=== PATIENT | female | born 1950 | race Two or more races ===

== ENCOUNTER 2023-07-04 13:31 | Inpatient (IN) | payer MEDICARE, MEDICAID ==
[~2023-07-04] VITALS: Ht 170.2 cm; Wt 85.4 kg
[2023-07-04 15:49] LABS: Basophils # (auto) 0 10 ^3/uL (0-0.2); Basophils % (auto) 0.4 % (0.0-2.0); Eosinophils # (auto) 0.1 10 ^3/uL (0-0.8); Eosinophils % (auto) 1.4 % (0.0-7.0); Hematocrit 38.9 % (36.0-46.0); Hemoglobin 12.9 g/dL (12.2-16.2); Lymphocytes # (auto) 1.3 10 ^3/uL (0.4-5.4); Lymphocytes % (auto) 20.1 % (10.0-50.0); Mean Corpuscular Hemoglobin 30.3 pg (28.0-32.0); Mean Corpuscular Hgb Conc. 33.2 g/dL (32.0-36.0); Mean Corpuscular Volume 91.5 fL (80.0-100.0); Monocytes # (auto) 0.3 10 ^3/uL (0-1.3); Monocytes % (auto) 5.1 % (0.0-12.0); Neutrophils # (auto) 4.8 10 ^3/uL (1.6-8.6); Nucleated Red Blood Cells % 0.1 %; Red Blood Cells 4.26 10^6/uL (4.0-5.20); Red Cell Distribution Width 12.8 % (11.8-14.3); White Blood Cell 6.6 10^3/uL (4.4-10.8)
[2023-07-04 16:00] LABS: Alanine Aminotransferase 23 U/L (7-40); Albumin 4.1 g/dL (3.2-4.8); Alkaline Phosphatase 63 U/L (46-116); Anion Gap 6 (5-15); Aspartate Aminotransferase 24 U/L (13-40); BUN/Creatinine Ratio 19.4 (10.0-20.0); Blood Urea Nitrogen 12 mg/dL (9-23); Calcium 8.9 mg/dL (8.7-10.4); Carbon Dioxide 28 mmol/L (20-30); Chloride 107 mmol/L (98-107); Glucose 96 mg/dL (74-106); Potassium 3.9 mmol/L (3.5-5.1); Sodium 141 mmol/L (136-145)
[2023-07-04 16:01] LABS: Bilirubin, Total 0.7 mg/dL (0.2-1.0); Total Protein 7.6 g/dL (5.7-8.2)
[2023-07-04 16:21] LABS: INR 1.01 (0.9-1.15); Partial Thromboplastin Time 26.3 SEC (24.5-34.5); Prothrombin Time 10.6 sec (9.3-11.8)
[2023-07-04] MEDS ORDERED: DOCUSATE SOD 100 MG CAP PO PRN (18:15)
[2023-07-04] MEDS ORDERED: MORPHINE SULFATE INJ 2 MG/ml SYRG IV PRN (18:15)
[2023-07-04] MEDS ORDERED: HYDROcodone-ACET 5/325MG TAB PO PRN (18:15)
[2023-07-04] MEDS ORDERED: ONDANSETRON HCL 4 MG/2 ML VIAL IV PRN (18:15)
[2023-07-04] MEDS ORDERED: ACETAMINOPHEN 325 MG TAB PO PRN (18:15)
[2023-07-04] MEDS ORDERED: ATOR40TA52 PO (18:41)
[2023-07-04] MEDS ORDERED: LOSA50TA46 PO (18:41)
[2023-07-04] MEDS ORDERED: hydrALAZINE HCL 20 MG/ML VL IV PRN (18:45)
[2023-07-04 20:15] VITALS: PULSE 65; RESP 14; O2SAT 95
[2023-07-04 23:48] VITALS: BP 148/63; PULSE 60; RESP 18; RESP 20; TEMP 98.3; TEMP 98.6; O2SAT 97
[2023-07-05 04:07] LABS: Urine Epithelial Cast None Seen /hpf (<5)
[2023-07-05 04:17] LABS: Urine Bacteria MANY /hpf (None Seen); Urine Blood Negative /uL (Negative); Urine Clarity HAZY (Clear); Urine Color Yellow (Yellow); Urine Mucus FEW (None Seen); Urine Protein, UAD TRACE (Negative); Urine Specific Gravity 1.023 (1.001-1.035); Urine WBC 116 /hpf (0 - 5)
[2023-07-05 05:00] VITALS: BP 137/46; PULSE 55; RESP 16; TEMP 98.3; O2SAT 94
[2023-07-05 06:28] LABS: Basophils # (auto) 0 10 ^3/uL (0-0.2); Basophils % (auto) 0.5 % (0.0-2.0); Eosinophils # (auto) 0.2 10 ^3/uL (0-0.8); Eosinophils % (auto) 3.5 % (0.0-7.0); Hematocrit 37.3 % (36.0-46.0); Hemoglobin 12.3 g/dL (12.2-16.2); Lymphocytes # (auto) 1.7 10 ^3/uL (0.4-5.4); Lymphocytes % (auto) 26.3 % (10.0-50.0); Mean Corpuscular Hemoglobin 30.3 pg (28.0-32.0); Mean Corpuscular Hgb Conc. 32.9 g/dL (32.0-36.0); Mean Corpuscular Volume 92.1 fL (80.0-100.0); Monocytes # (auto) 0.5 10 ^3/uL (0-1.3); Monocytes % (auto) 8.4 % (0.0-12.0); Neutrophils # (auto) 3.9 10 ^3/uL (1.6-8.6); Neutrophils % (auto) 61.3 % (37.0-80.0); Nucleated Red Blood Cells % 0.1 %; Red Blood Cells 4.05 10^6/uL (4.0-5.20); White Blood Cell 6.3 10^3/uL (4.4-10.8)
[2023-07-05 06:45] LABS: Alanine Aminotransferase 16 U/L (7-40); Alkaline Phosphatase 56 U/L (46-116); Anion Gap 6 (5-15); BUN/Creatinine Ratio 17.2 (10.0-20.0); Blood Urea Nitrogen 11 mg/dL (9-23); Carbon Dioxide 26 mmol/L (20-30); Chloride 109 mmol/L (98-107); Glucose 96 mg/dL (74-106); Potassium 4.1 mmol/L (3.5-5.1); Sodium 141 mmol/L (136-145)
[2023-07-05 06:46] LABS: Albumin 3.8 g/dL (3.2-4.8); Aspartate Aminotransferase 23 U/L (13-40)
[2023-07-05 06:47] LABS: Bilirubin, Total 0.8 mg/dL (0.2-1.0)
[2023-07-05 08:00] VITALS: BP 146/73; PULSE 62; RESP 18; TEMP 98.4; O2SAT 94
[2023-07-05 08:35] VITALS: BP 146/73; PULSE 62; RESP 18; TEMP 98.4; O2SAT 94
[2023-07-05] MEDS: ATORVASTATIN 20 MG TAB PO SCH (09:18)
[2023-07-05] MEDS: LOSARTAN POTASSIUM 50 MG TAB PO SCH (09:18)
[2023-07-05 10:42] LABS: Hepatitis B Surface Antigen Negative (Negative)
[2023-07-05] MEDS ORDERED: cefTRIAXone 1GM/50ML D5W 50 ML IV ONE (11:45)
[2023-07-05 12:12] LABS: Hepatitis C Antibody Negative (Negative)
[2023-07-05 12:32] VITALS: BP 126/60; PULSE 63; RESP 18; TEMP 98.1; O2SAT 93
[2023-07-05 16:17] VITALS: BP 150/61; PULSE 76; RESP 15; TEMP 97.9; O2SAT 93
[2023-07-05 22:00] VITALS: BP 142/69; PULSE 59; RESP 20; TEMP 98.6; O2SAT 92
[2023-07-06 05:00] VITALS: BP 133/67; PULSE 72; RESP 20; TEMP 98.2; O2SAT 96
[2023-07-06 06:46] LABS: Basophils # (auto) 0 10 ^3/uL (0-0.2); Basophils % (auto) 0.6 % (0.0-2.0); Eosinophils # (auto) 0.2 10 ^3/uL (0-0.8); Eosinophils % (auto) 3.5 % (0.0-7.0); Hematocrit 37.1 % (36.0-46.0); Hemoglobin 12.6 g/dL (12.2-16.2); Lymphocytes # (auto) 1.7 10 ^3/uL (0.4-5.4); Lymphocytes % (auto) 26.3 % (10.0-50.0); Mean Corpuscular Hemoglobin 30.9 pg (28.0-32.0); Mean Corpuscular Hgb Conc. 33.9 g/dL (32.0-36.0); Mean Corpuscular Volume 91.2 fL (80.0-100.0); Monocytes # (auto) 0.5 10 ^3/uL (0-1.3); Monocytes % (auto) 8.1 % (0.0-12.0); Neutrophils # (auto) 3.9 10 ^3/uL (1.6-8.6); Neutrophils % (auto) 61.5 % (37.0-80.0); Red Blood Cells 4.07 10^6/uL (4.0-5.20); Red Cell Distribution Width 12.9 % (11.8-14.3); White Blood Cell 6.4 10^3/uL (4.4-10.8)
[2023-07-06 07:06] LABS: Calcium 9.2 mg/dL (8.5-10.1); Chloride 109 mmol/L (98-107); Potassium 3.9 mmol/L (3.5-5.1); Sodium 139 mmol/L (136-145)
[2023-07-06 07:07] LABS: Anion Gap 6 (5-15); Carbon Dioxide 24 mmol/L (20-30)
[2023-07-06 07:12] LABS: BUN/Creatinine Ratio 20.3 (10.0-20.0); Blood Urea Nitrogen 14 mg/dL (9-23); Glucose 97 mg/dL (74-106)
[2023-07-06 08:34] VITALS: BP 145/71; PULSE 77; RESP 18; TEMP 97.5; O2SAT 91
[2023-07-06] MEDS ORDERED: cefTRIAXone 1GM/50ML D5W 50 ML IV SCH (09:00)
[2023-07-06] MEDS: ATORVASTATIN 20 MG TAB PO SCH (09:17)
[2023-07-06] MEDS: LOSARTAN POTASSIUM 50 MG TAB PO SCH (09:17)
[2023-07-06] MEDS ORDERED: NITR-87 PO (10:58)
[2023-07-06] MEDS ORDERED: TRAM50TA2 PO (10:58)
[2023-07-06 11:11] VITALS: BP 145/71; TEMP 36.4
== END 2023-07-06 11:56 | disposition home or self-care (01) | DRG 964 ==
LOC: ER 13:31 → OVERFLOW 18:16 → WEST WING 18:16
PROVIDERS: ADMIT Nurse Practitioner Family; ATTEND Internal Medicine
PROC: 2W38X1Z Immobilization of Right Upper Extremity using Splint (ICD-10-PCS; principal; 2023-07-04)
DX: S32.591A Other specified fracture of right pubis, initial encounter for closed fracture (principal); N39.0 Urinary tract infection, site not specified; S27.321A Contusion of lung, unilateral, initial encounter; S52.691A Other fracture of lower end of right ulna, initial encounter for closed fracture; K80.20 Calculus of gallbladder without cholecystitis without obstruction; S63.501A Unspecified sprain of right wrist, initial encounter; I10 Essential (primary) hypertension; E78.5 Hyperlipidemia, unspecified; W08.XXXA Fall from other furniture, initial encounter; Y93.89 Activity, other specified; Y92.098 Other place in other non-institutional residence as the place of occurrence of the external cause
CPT/HCPCS: 36415; 71250; 72192; 73090; 73110; 73200; 80048; 80053; 81001; 84484; 85025; 85610; 85730; 86803; 86850; 86900; 86901; 87340; 97116; 97163; 97530; G0378